=== PATIENT | female | born 2000 | race American Indian/Alaskan Native ===

== ENCOUNTER 2019-02-15 23:18 | Emergency (ER) | payer SELFPAY ==
--- NOTE | 2019-02-15 23:50 | Emergency Department Report ---
ED Female HPI - General Chief complaint: Urogenital-Female Stated complaint: VAGINAL PAIN Time Seen by Provider: 02/15/19 23:44 Source: patient Mode of arrival: Ambulatory Limitations: No Limitations - History of Present Illness Initial comments: Patient is a 19-year-old female presents emergency room with complaints of vaginal discharge that began 4 days ago. She states the discharge is watery and yellow/green in coloration. She states that she also has "small tears on her labia." She states that she has been using a condom while having intercourse. She states she has associated dysuria. She denies any abdominal pain, nausea, vomiting, diarrhea, fever. She denies having a new partner. She has a past medical history of anemia. She states she has an allergy to penicillin. She states her last mental cycle was February 05. She denies any history of STDs. - Related Data Previous Rx's Medication Instructions Recorded Last Taken Type Ibuprofen [Motrin] 600 mg PO Q8H PRN #20 tablet 01/23/16 Unknown Rx Acyclovir 400 mg PO TID 7 Days #21 tablet 02/16/19 Unknown Rx Nitrofurantoin [place]/M-Cryst 100 mg PO BID 5 Days #10 capsule 02/16/19 Unknown Rx [Macrobid CAP] metroNIDAZOLE [Flagyl] 500 mg PO BID 7 Days #14 tab 02/16/19 Unknown Rx Allergies Allergy/AdvReac Type Severity Reaction Status Date / Time Penicillins Allergy Hives Verified 02/15/19 23:31 ED Review of Systems ROS: Stated complaint: VAGINAL PAIN Other details as noted in HPI Comment: All other systems reviewed and negative ED Past Medical Hx - Past Medical History Previous Medical History?: Yes Additional medical history: Anemia - Surgical History Past Surgical History?: Yes Additional Surgical History: breast reduction 08/2014 - Social History Smoking Status: Never Smoker Substance Use Type: Alcohol - Medications Home Medications: Home Medications Medication Instructions Recorded Confirmed Last Taken Type Ibuprofen [Motrin] 600 mg PO Q8H PRN #20 tablet 01/23/16 Unknown Rx Acyclovir 400 mg PO TID 7 Days #21 tablet 02/16/19 Unknown Rx Nitrofurantoin [place]/M-Cryst 100 mg PO BID 5 Days #10 capsule 02/16/19 Unknown Rx [Macrobid CAP] metroNIDAZOLE [Flagyl] 500 mg PO BID 7 Days #14 tab 02/16/19 Unknown Rx ED Physical Exam - General Limitations: No Limitations General appearance: alert, in no apparent distress - Head Head exam: Present: atraumatic, normocephalic - Eye Eye exam: Present: normal appearance - ENT ENT exam: Present: mucous membranes moist - Respiratory Respiratory exam: Present: normal lung sounds bilaterally. Absent: respiratory distress, wheezes, rales, rhonchi, stridor, chest wall tenderness, accessory muscle use, decreased breath sounds, prolonged expiratory - Cardiovascular Cardiovascular Exam: Present: regular rate, normal rhythm, normal heart sounds. Absent: systolic murmur, diastolic murmur, rubs, gallop - GI/Abdominal GI/Abdominal exam: Present: soft, normal bowel sounds. Absent: distended, tenderness, guarding, rebound, rigid - External exam: Present: lesions (blisters and ulcerations present to the bilateral labia minora and inside of the labia majora) Speculum exam: Present: vaginal discharge (copious green/yellow discharge), other (dike supervisor: Stacey Mae PA-C). Absent: vaginal bleeding, foreign body, tissue, laceration Bi-manual exam: Present: normal bi-manual exam. Absent: cervical motion tendernes, adnexal tenderness, adnexal mass - Neurological Exam Neurological exam: Present: alert, oriented X3 - Psychiatric Psychiatric exam: Present: normal affect, normal mood - Skin Skin exam: Present: warm, dry, intact ED Course Vital Signs 02/15/19 02/16/19 23:20 01:40 Temperature 99.9 F H 99.1 F Pulse Rate 112 H 92 H Respiratory 12 16 Rate Blood Pressure 119/77 Blood Pressure 122/65 [Left] O2 Sat by Pulse 97 100 Oximetry ED Medical Decision Making - Medical Decision Making Patient is a 19-year-old female presents emergency room with complaints of vaginal discharge that began 4 days ago. She states the discharge is watery and yellow/green in coloration. She states that she also has "small tears on her labia." She states that she has been using a condom while having intercourse. She states she has associated dysuria. She denies any abdominal pain, nausea, vomiting, diarrhea, fever. She denies having a new partner. She has a past medical history of anemia. She states she has an allergy to penicillin. She states her last mental cycle was November 18. She denies any history of STDs. initial vitals with mildly elevated temp and mild tachycardia which improved to normal on repeat. on exam:blisters and ulcerations present to the bilateral labia minora and inside of the labia majora, copious green/yellow discharge, no CMT, no adnexal tenderness or masses. Wet prep shows evidence of BV, pt given prescription for flagyl. G/C swab sent. Patient given azithromycin and cef triaxone prophylactically for G/C. UA shows evidence of UTI, patient given prescription for Macrobid. Patient given prescription for acyclovir for suspected herpes vaginalis. advised pt to please take medication as prescribed. 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 But you have been treated for these today. No sexual intercourse for 2 weeks. please have partner tested and treated as well. please be seen by the health department or primary care clinic for full STD panel. Do not drink alcohol while taking medication. Return to the emergency room for any new or worsening symptoms. - Differential Diagnosis STD, vaginitis, BV, UTI Critical care attestation.: If time is entered above; I have spent that time in minutes in the direct care of this critically ill patient, excluding procedure time. ED Disposition Clinical Impression: Bacterial vaginosis, Herpes simplex virus (HSV) infection of vagina UTI (urinary tract infection) Qualifiers: Urinary tract infection type: acute cystitis Hematuria presence: without hematuria Qualified Code(s): N30.00 - Acute cystitis without hematuria Disposition: TO HOME OR SELFCARE Is pt being admited?: No Does the pt Need Aspirin: No Condition: Stable Instructions: Bacterial Vaginosis (ED), Genital Herpes Simplex (ED), Sexually Transmitted Diseases (ED), Safe Sex (ED), Urinary Tract Infection in Women (ED) Additional Instructions: Please take medication as prescribed. 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 But you have been treated for these today. No sexual intercourse for 2 weeks. please have partner tested and treated as well. please be seen by the health department or primary care clinic for full STD panel. Do not drink alcohol while taking medication. Return to the emergency room for any new or worsening symptoms. Prescriptions: Acyclovir 400 mg PO TID 7 Days #21 tablet metroNIDAZOLE [Flagyl] 500 mg PO BID 7 Days #14 tab Nitrofurantoin [place]isago/M-Cryst [Macrobid CAP] 100 mg PO BID 5 Days #10 capsule Referrals: [facility] [Outside] - 2-3 Days [facility] [Provider Group] - 2-3 Days Forms: STI Treatment and Prevention Time of Disposition: 01:26 Print Language: SOU[place]
[2019-02-16] MEDS ORDERED: LIDOCAINE-MPF (1%) 10 MG/1 ML VIAL 5 ML INFILTRATI ONE
[2019-02-16] MEDS ORDERED: AZITHROMYCIN 1 GM ORAL PWDR PACKET PO ONE
[2019-02-16 00:01] LABS: Bacteria,Urine 1+ /HPF (Negative); Bilirubin,Urine NEG (Negative); Blood,Urine NEG (Negative); Color,Urine Yellow (Yellow); Mucus,Urine 1+ /HPF; Protein,Urine <15 mg/dL mg/dL (Negative); Urobilinogen,Urine < 2.0 mg/dL (<2.0)
[2019-02-16 00:09] LABS: HCG Qualitative,Urine Negative (Negative)
[2019-02-16 01:42] VITALS: BP 122/65
== END 2019-02-16 01:42 | disposition home or self-care (01) ==
LOC: ED 23:18
DX: A60.04 Herpesviral vulvovaginitis (principal); N76.0 Acute vaginitis; N39.0 Urinary tract infection, site not specified; D64.9 Anemia, unspecified; Z88.0 Allergy status to penicillin
CPT/HCPCS: 81001; 81025; 87086; 87210; 87591; J0696; 96372